=== PATIENT | female | born 1960 | race Caucasian/White ===

== ENCOUNTER 2018-11-16 05:11 | Inpatient (IN) | payer MEDICARE, MEDICAID ==
[2018-11-16] VITALS (24 sets, daily range): BP systolic 101–137; BP diastolic 48–81
[~2018-11-16] VITALS: Ht 165.1 cm; Wt 75.6 kg
[2018-11-16] MEDS ORDERED: CYCL-1 PO (05:37)
[2018-11-16] MEDS ORDERED: AMLO10TA13 PO (05:37)
[2018-11-16] MEDS ORDERED: MAGN400T28 PO (05:37)
[2018-11-16] MEDS ORDERED: OMEP-50 PO (05:37)
[2018-11-16] MEDS ORDERED: HYDR-3717 PO (05:37)
[2018-11-16] MEDS ORDERED: BACL10TA2 PO (05:37)
[2018-11-16] MEDS ORDERED: LISI10TA4 PO (05:37)
--- NOTE | 2018-11-16 05:39 | NUR ---
pt is somulent but will arouse with light stimulation or loud calling of her name. once awake she is appropriate but slightly slow to respond.
--- NOTE | 2018-11-16 05:42 | NUR ---
pt not able to recall medications she takes at home. MD has transfer packet at this time. external med rec recalled and medications that are still current were entered.
--- NOTE | 2018-11-16 05:46 | NUR ---
Dr. Falcon to bedside to evaluate the patient.
[2018-11-16 05:48] LABS: BASOPHILS # (AUTO) 0.1 X10'3 (0-0.2); MEAN CORPUSCULAR VOLUME 90.3 FL (78-98); MONOCYTES # (AUTO) 0.5 X10'3 (0-0.9)
[2018-11-16 05:49] LABS: BASOPHILS % (AUTO) 0.7 % (0-1); EOSINOPHILS # (AUTO) 0.2 X10'3 (0-0.9); EOSINOPHILS % (AUTO) 2.3 % (0-6); HEMATOCRIT 23.7 % (35.0-45.0); HEMOGLOBIN 8.3 g/dl (12.0-16.0); LYMPHOCYTES # (AUTO) 4.5 X10'3 (1.1-4.8); LYMPHOCYTES % (AUTO) 56.5 % (21-51); MEAN CORPUSCULAR HEMOGLOBIN 31.7 PG (27.0-31.0); MEAN CORPUSCULAR HGB CONC 35.1 g/dL (33.0-36.5); MEAN PLATELET VOLUME 9.8 FL (7.4-10.4); MONOCYTES % (AUTO) 5.7 % (2-12); NEUTROPHILS # (AUTO) 2.8 X10'3 (1.8-7.7); NEUTROPHILS % (AUTO) 34.8 % (42-75); RED BLOOD COUNT 2.63 X10'6 (4.20-5.60); RED CELL DISTRIBUTION WIDTH 14.1 % (11.5-14.5)
[2018-11-16 05:52] LABS: CLARITY,URINE CLOUDY (Clear); COLOR,URINE AMBER (Yellow); GLUCOSE, URINE NEGATIVE (Neg); KETONES,URINE TRACE mg/dl (Neg); LEUKOCYTE ESTERASE ,URINE SMALL (Neg); NITRITES, URINE NEGATIVE (Neg); OCCULT BLOOD,URINE LARGE (Neg); PH,URINE 5.5 (4.8-8.0); PROTEIN,URINE 100 mg/dl (Neg)
[2018-11-16 05:56] LABS: UA COLLECTION TYPE NON-SPECIFIED
[2018-11-16 06:00] LABS: BACTERIA,URINE 4+ /HPF (Neg); MUCUS STRANDS FEW /LPF (Neg); SQUAMOUS EPITHELIAL CELL,UR FEW /LPF (FEW); WBC,URINE 20-30 /HPF (0-4)
[2018-11-16 06:01] LABS: PARTIAL THROMBOPLASTIN TIME 37 SECONDS (22-32)
[2018-11-16 06:02] LABS: TRANSITIONAL EPI CELLS,URINE FEW /HPF
[2018-11-16 06:02] LABS: ALANINE AMINOTRANSFERASE 114 U/L (12-78); ALBUMIN 2.5 G/DL (3.4-5.0); ALBUMIN/GLOBULIN RATIO 0.8 (1.1-1.5); ALKALINE PHOSPHATASE 232 IU/L (46-116); ANION GAP 17 (8-16); ASPARTATE AMINO TRANSFERASE 260 U/L (10-37); BILIRUBIN,TOTAL 5.8 MG/DL (0.1-1.0); BLOOD UREA NITROGEN 28 MG/DL (7-18); BUN/CREATININE RATIO 22.8 (6.6-38.0); CALCIUM 8.4 MG/DL (8.5-10.1); CHLORIDE 92 MMOL/L (99-107); CREATININE 1.23 MG/DL (0.40-0.90); GLUCOSE 96 MG/DL (70-104); LIPASE 658 U/L (73-393); POTASSIUM 4.2 MMOL/L (3.5-5.1); SODIUM 128 MMOL/L (135-145); TOTAL CARBON DIOXIDE 19.4 MMOL/L (24-32); TOTAL PROTEIN 5.7 G/DL (6.4-8.2); eGFR 45 ML/MIN
[2018-11-16 06:03] LABS: AMORPHOUS URATES 2+
[2018-11-16 06:04] LABS: PLATELET COUNT 5 X10'3 (140-440)
--- NOTE | 2018-11-16 06:22 | NUR ---
RECEIVED REPORT FROM ROBBIN CASTANON, US AT BEDSIDE PER ORDERS, APRIL THE DESK OPERATOR AT BEDSIDE TO [place] FOR ADMISSION.
[2018-11-16 06:25] LABS: LACTIC SEPSIS 4.1 MMOL/L (0.4-2.0)
--- NOTE | 2018-11-16 06:32 | NUR ---
APRIL DISCUSSED PT WITH DR SINGH, INFORMED BOTH PROVIDER LACTIC 4.1, PROVIDERS DISCUSSED PLACING CENTRAL LINE, PER SAMANTHA WILL WAIT UNTIL 2 UNITS OF PLATELETS ADMINISTERED.
[2018-11-16] MEDS ORDERED: ipratropium/albuterol 3ml nebule NEB PRN (07:05)
[2018-11-16] MEDS ORDERED: dextrose 50%-water 50ml dispensing syringe IV PRN ×2 (07:05)
[2018-11-16] MEDS ORDERED: dextrose ORAL solution 15 GM/59 ML bottle PO PRN ×2 (07:05)
[2018-11-16] MEDS ORDERED: glucagon, human recombinant 1mg kit SUBCUT PRN (07:05)
[2018-11-16] MEDS ORDERED: acetaminophen 325mg tablet PO PRN (07:05)
[2018-11-16] MEDS ORDERED: ondansetron/PF 4mg/2ml inj IV PRN (07:05)
--- NOTE | 2018-11-16 07:21 | NUR ---
RECEIVED CALL FROM APRIL VERBAL ODER NS 75ML/HOUR AFTER BOTH PLATELETS ADMINISTERED AND HEAD CT ORDERED.
--- NOTE | 2018-11-16 07:46 | NUR ---
PT TO CT VIA JOSE WITH P[employer] AND [employer]EL MAN AND RN ON FULL MONITOR, PT STABLE FOR TRANSPORT
[2018-11-16] MEDS ORDERED: ESOMEPRAZOLE 40 MG VIAL IV SCH (08:00)
[2018-11-16] MEDS ORDERED: pantoprazole 40 MG vial IV SCH (08:00)
--- NOTE | 2018-11-16 08:00 | NUR ---
Patient in room ICU 2043. I have received report from Rachel CASTANON and had the opportunity to ask questions and assume patient care. Patient transported to our unit via gurney accompanied by RN, YULIANA running at 75ml/hr. Vital signs stable, no signs or symptoms of distress. Patient transferred from journey to bed and tolerated well. Two skin RN check completed with Silvio CASTANON, patient noted to have several bruises on the bilateral arms and to the right hip. Patient is sleepy but wakes and answers questions appropriately.
--- NOTE | 2018-11-16 08:00 | NUR ---
PT BACK TO BED [address], PT COMPLETED SECOND UNIT OF PLATELETS.
[2018-11-16] MEDS: normal saline 1000ml 1,000 ML IV SCH ×3 (08:08→20:53)
[2018-11-16 08:38] LABS: ACETAMINOPHEN < 2.0 UG/ML (10-30)
[2018-11-16] MEDS: lisinopril 10 MG tablet PO SCH (09:13)
[2018-11-16 09:24] LABS: NUCLEATED RED BLOOD CELLS 4 /100WBC (0-0); PLATELET ESTIMATE DECREASED; TOTAL CELLS COUNTED 100
[2018-11-16 09:25] LABS: BURR CELLS 2+; POLYCHROMASIA FEW; SCHISTOCYTES FEW
[2018-11-16 09:27] LABS: SMUDGE CELLS 2+
[2018-11-16] MEDS: lactobacillus rhamnosus 10,000 MMU CELLS/CAPSULE PO SCH ×2 (09:46→20:52)
[2018-11-16] MEDS: lactulose 20gm/30ml cup PO SCH ×2 (09:46→14:23)
[2018-11-16] MEDS: docusate sod 100mg capsule PO SCH ×2 (09:47→20:00)
--- NOTE | 2018-11-16 11:40 | NUR ---
Initial: Pt admit w/ gallstone pancreatitis and transaminitis; hx etoh cirrhosis now sober per pt and prior IVDA meth and cocaine per MD. Receiving banana bag. Pt Ferritin pending for possible hemochromatosis per MD. Pt Lipase on admit 658 w/ gallstones noted per imaging. Advanced to heart healthy diet today pending PO hx. Pt receiving routine lactulose given liver hx and ammonia 125. LBM 11/13. AOx4 per RN. Will continue to monitor. Rec: 1. continue heart healthy diet per MD 2. monitor for ONS needs pending PO hx 3. wt per rx 4. MVI/thiamin/folic for etoh hx per MD Addendum: 11/16/18 at [address] Amended: Links added.
[2018-11-16 12:03] LABS: HEMOGLOBIN 7.5 g/dl (12.0-16.0); MEAN CORPUSCULAR HEMOGLOBIN 31.9 PG (27.0-31.0); MEAN CORPUSCULAR HGB CONC 35.6 g/dL (33.0-36.5); MEAN CORPUSCULAR VOLUME 89.5 FL (78-98); MEAN PLATELET VOLUME 7.8 FL (7.4-10.4); RED BLOOD COUNT 2.34 X10'6 (4.20-5.60); RED CELL DISTRIBUTION WIDTH 13.8 % (11.5-14.5); WHITE BLOOD COUNT 4.7 X10'3 (4.5-11.0)
[2018-11-16 12:11] LABS: HEMATOCRIT 20.9 % (35.0-45.0); PLATELET COUNT 38 X10'3 (140-440)
[2018-11-16] MEDS: sucralfate 1gm/10ml UD suspension PO SCH ×3 (12:25→21:00)
[2018-11-16 12:32] LABS: % IRON SATURATION 98 % (11-46); IRON 242 UG/DL (49-151); TOTAL IRON BINDING CAPACITY 248 UG/DL (259-388)
[2018-11-16 12:33] LABS: FERRITIN 8159 NG/ML (8-252)
--- NOTE | 2018-11-16 12:56 | NUR ---
Per Dr Bronson after reviewing ABD Ultrasound 11/16/18 negative for ascites Paracentesis cancelled. ICU nurse called and informed
--- NOTE | 2018-11-16 13:24 | NUR ---
Called DR. Carballo about angio not performing the paracentesis, per Dr. Bronson reviewing the abd u/s and not finding enough evidence of ascites to warrant a paracentesis. no new orders at this time
--- NOTE | 2018-11-16 14:12 | NUR ---
Bárbara Called to notify that pt had gram negative bacteria in 2 aerobic bottles after 14 hours of growth. Notified dr reyes via telephone of results. Orders received to change abx. see order hx.
[2018-11-16] MEDS: piperacillin/tazo 3.375gm/50ml 50 ML IV SCH ×2 (15:01→20:53)
--- NOTE | 2018-11-16 15:23 | NUR ---
Son Darlene Milaca called to check on his mother, I, Kristi CASTANON obtained consent and Silvio CASTANON witnessed consent given to release information to said son Darlene. He provided us with his phone number [phone] he resides in [facility]. I updated him on his mothers status and answered any questions that he had. Also gave him our direct number and to call at anytime with any questions.
[2018-11-16 16:24] LABS: OCCULT BLOOD STOOL POSITIVE (Neg)
[2018-11-16 17:18] LABS: HEMOGLOBIN 7.2 g/dl (12.0-16.0); MEAN CORPUSCULAR HEMOGLOBIN 32.1 PG (27.0-31.0); MEAN PLATELET VOLUME 7.9 FL (7.4-10.4); RED CELL DISTRIBUTION WIDTH 14.5 % (11.5-14.5); WHITE BLOOD COUNT 4.2 X10'3 (4.5-11.0)
--- NOTE | 2018-11-16 18:24 | NUR ---
assumed care received report from Kristi CASTANON no questions or concerns after report
--- NOTE | 2018-11-16 18:55 | NUR ---
LAB CALLED SPOKE WITH [facility] LAB VALUES HAVE CHANGED DUE TO PATIENTS CONDITION MCHC IS AT 35.1,RBC 2.29,PLT 28,HGB SAME,MCT 20.5, LAB STATED IT WILL BE IN THEIR NOTES
[2018-11-16 18:56] LABS: RED BLOOD COUNT 2.29 X10'6 (4.20-5.60)
[2018-11-16 18:57] LABS: HEMATOCRIT 20.5 % (35.0-45.0)
[2018-11-16 18:58] LABS: MEAN CORPUSCULAR HGB CONC 35.1 g/dL (33.0-36.5)
[2018-11-16 18:59] LABS: PLATELET COUNT 28 X10'3 (140-440)
--- NOTE | 2018-11-16 19:00 | NUR ---
PATIENT IN BED EYES CLOSED RR EVEN UN LABORED NO S/S OF ACUTE STRESS AT THIS TIME
--- NOTE | 2018-11-16 19:00 | NUR ---
IN REPORT rn STATES THAT PATIENT HAS HAD MULTIPLE BM'S, SPOKE WITH APRIL DIRECTOR MEDICAL SAFETY TO POSSIBLY GET A RECTAL BAG NOT TUBE DUE TO PLT COUNT, APRIL STATED HOLD NEXT DOSE OF LACTULOSE AND RE-ASSESS BM'S AND IF MULTIPLE BM'S ORDER RECTAL BAG WOULD BE APPROPRIATE
[2018-11-16 19:03] LABS: HIV ANTIBODY 1&2 RAPID NON-REACTIVE (Neg)
[2018-11-16] MEDS: rifaximin 550mg tablet PO SCH (20:52)
--- NOTE | 2018-11-16 21:05 | NUR ---
APRIL NO VERBALIZED TO HOLD NEXT TWO DOSES OF LACTULOSE DUE TO PATIENT HAVING CONTINUOS DIARRHEA
[2018-11-17] VITALS (29 sets, daily range): BP systolic 107–137; BP diastolic 60–84
[2018-11-17] MEDS ORDERED: CefTRIAXone 2gm/D5W 50ml 50 ML IV SCH
--- NOTE | 2018-11-17 00:10 | NUR ---
PLACED RECTAL BAG VERBAL ORDER FROM APRIL COMPRESS ENGINEER PRN FOR MULTIPLE UNCONTROLLABLE BOWEL MOVEMENTS
--- NOTE | 2018-11-17 00:12 | NUR ---
PATIENT IN BED EYES CLOSED RR EVEN UN LABORED NO OBSERVABLE S/S OF ACUTE STRESS AT THIS TIME
[2018-11-17] MEDS: octreotide inj. 1,250 MCG in normal saline 250ml IV soln 243.75 ML IV SCH (01:19)
[2018-11-17] MEDS: lactulose 20gm/30ml cup PO SCH ×3 (01:19→20:23)
[2018-11-17] MEDS: normal saline 1000ml 1,000 ML IV SCH ×2 (01:20→16:24)
[2018-11-17 02:25] LABS: HEMATOCRIT 25.4 % (35.0-45.0); HEMOGLOBIN 9.1 g/dl (12.0-16.0); MEAN CORPUSCULAR HEMOGLOBIN 31.8 PG (27.0-31.0); MEAN CORPUSCULAR HGB CONC 35.9 g/dL (33.0-36.5); MEAN CORPUSCULAR VOLUME 88.7 FL (78-98); MEAN PLATELET VOLUME 7.4 FL (7.4-10.4); RED BLOOD COUNT 2.87 X10'6 (4.20-5.60); RED CELL DISTRIBUTION WIDTH 14.4 % (11.5-14.5); WHITE BLOOD COUNT 6.7 X10'3 (4.5-11.0)
--- NOTE | 2018-11-17 02:30 | NUR ---
patient in bed covers on eyes closed rr even un labored no observable s/s of acute stress or bleeding
[2018-11-17 02:31] LABS: PLATELET COUNT 17 X10'3 (140-440)
[2018-11-17] MEDS: piperacillin/tazo 3.375gm/50ml 50 ML IV SCH ×3 (03:17→14:12)
--- NOTE | 2018-11-17 04:30 | NUR ---
patient in bed eyes closed rr even un labored no observable s/s of acute stress at this time
--- NOTE | 2018-11-17 05:37 | NUR ---
patient in bed eyes closed rr even unlabored no observable s/s of acute stress or bleeding at this time
[2018-11-17 05:49] LABS: ALANINE AMINOTRANSFERASE 173 U/L (12-78); ALBUMIN 2.5 G/DL (3.4-5.0); ALKALINE PHOSPHATASE 202 IU/L (46-116); ANION GAP 10 (8-16); ASPARTATE AMINO TRANSFERASE 304 U/L (10-37); BILIRUBIN,TOTAL 9.4 MG/DL (0.1-1.0); BLOOD UREA NITROGEN 23 MG/DL (7-18); BUN/CREATININE RATIO 26.7 (6.6-38.0); CALCIUM 8.5 MG/DL (8.5-10.1); CHLORIDE 97 MMOL/L (99-107); CREATININE 0.86 MG/DL (0.40-0.90); GLUCOSE 146 MG/DL (70-104); MAGNESIUM 2.2 MG/DL (1.5-2.4); SODIUM 132 MMOL/L (135-145); TOTAL CARBON DIOXIDE 24.6 MMOL/L (24-32); eGFR 68 ML/MIN
[2018-11-17 05:51] LABS: ALBUMIN/GLOBULIN RATIO 0.8 (1.1-1.5); PHOSPHORUS 2.6 MG/DL (2.3-4.5); POTASSIUM 3.6 MMOL/L (3.5-5.1); TOTAL PROTEIN 5.7 G/DL (6.4-8.2)
[2018-11-17 05:59] LABS: PARTIAL THROMBOPLASTIN TIME 40 SECONDS (22-32)
[2018-11-17 06:05] LABS: BASOPHILS % (AUTO) 0.4 % (0-1); EOSINOPHILS # (AUTO) 0.1 X10'3 (0-0.9); EOSINOPHILS % (AUTO) 2.2 % (0-6); HEMATOCRIT 23.8 % (35.0-45.0); HEMOGLOBIN 8.6 g/dl (12.0-16.0); LYMPHOCYTES # (AUTO) 2.6 X10'3 (1.1-4.8); MEAN CORPUSCULAR HEMOGLOBIN 32.1 PG (27.0-31.0); MEAN CORPUSCULAR VOLUME 89.2 FL (78-98); MEAN PLATELET VOLUME 7.7 FL (7.4-10.4); MONOCYTES # (AUTO) 0.3 X10'3 (0-0.9); MONOCYTES % (AUTO) 5.2 % (2-12); NEUTROPHILS # (AUTO) 3.4 X10'3 (1.8-7.7); NEUTROPHILS % (AUTO) 52.2 % (42-75); RED BLOOD COUNT 2.67 X10'6 (4.20-5.60); RED CELL DISTRIBUTION WIDTH 14.7 % (11.5-14.5); WHITE BLOOD COUNT 6.5 X10'3 (4.5-11.0)
--- NOTE | 2018-11-17 06:27 | NUR ---
SBAR TO OSORIO CASTANON NO QUESTIONS OR CONCERNS AFTER REPORT
[2018-11-17 06:49] LABS: PLATELET COUNT 27 X10'3 (140-440)
[2018-11-17 06:52] LABS: NUCLEATED RED BLOOD CELLS 13 /100WBC (0-0); TOTAL CELLS COUNTED 100
[2018-11-17 06:54] LABS: PLATELET ESTIMATE DECREASED
[2018-11-17 06:56] LABS: HYPOCHROMASIA 1+; POLYCHROMASIA FEW; SCHISTOCYTES FEW
[2018-11-17 06:57] LABS: TOXIC GRANULATION 2+
[2018-11-17] MEDS: sucralfate 1gm/10ml UD suspension PO SCH ×4 (07:00→21:40)
[2018-11-17] MEDS: docusate sod 100mg capsule PO SCH ×2 (07:53→20:00)
[2018-11-17] MEDS: nicotine 14mg patch - 24hr TD SCH (08:00)
[2018-11-17] MEDS: lactobacillus rhamnosus 10,000 MMU CELLS/CAPSULE PO SCH ×2 (08:09→20:23)
[2018-11-17] MEDS: amLODIPine 5mg tablet PO SCH (08:10)
[2018-11-17] MEDS: lisinopril 10 MG tablet PO SCH (08:10)
[2018-11-17] MEDS: folic acid inj. 2 MG, thiamine inj. 100 MG in normal saline 100ml IV soln 100 ML IV SCH (08:11)
[2018-11-17] MEDS: MVI, adult No.4 with vit. K 10 ML in dextrose 5% water 500ml 500 ML IV SCH ×2 (09:33)
[2018-11-17] MEDS: rifaximin 550mg tablet PO SCH ×2 (12:21→20:24)
[2018-11-17] MEDS ORDERED: piperacillin/tazo 3.375gm/50ml 50 ML IV SCH (16:00)
--- NOTE | 2018-11-17 17:07 | NUR ---
Cabello discontinued per MD order according to policy and procedure. Patient tolerated well
--- NOTE | 2018-11-17 18:30 | NUR ---
Patient in room ICU 2043. I have received report from LG Cardenas and had the opportunity to ask questions and assume patient care. Patient is awake and alert, finishing dinner at time of report.
[2018-11-17 19:26] LABS: HEMATOCRIT 24.2 % (35.0-45.0); HEMOGLOBIN 8.5 g/dl (12.0-16.0); MEAN CORPUSCULAR HEMOGLOBIN 31.8 PG (27.0-31.0); MEAN CORPUSCULAR HGB CONC 35.2 g/dL (33.0-36.5); MEAN CORPUSCULAR VOLUME 90.2 FL (78-98); MEAN PLATELET VOLUME 7.8 FL (7.4-10.4); RED BLOOD COUNT 2.69 X10'6 (4.20-5.60); RED CELL DISTRIBUTION WIDTH 14.7 % (11.5-14.5); WHITE BLOOD COUNT 7.6 X10'3 (4.5-11.0)
[2018-11-17 19:33] LABS: PLATELET COUNT 14 X10'3 (140-440)
--- NOTE | 2018-11-17 19:50 | NUR ---
Critical Platelet count of 14. Call to Britney Greene NP. Order for 2 units Platelets transfuse now. re draw with AM labs. Patient requests "sleeping pill" states " I have not slept in a long time". Order for Restoril 15mg repeat x1 in not effective q HS PRN.
[2018-11-17] MEDS ORDERED: temazepam 15mg capsule PO PRN (20:15)
--- NOTE | 2018-11-17 23:06 | NUR ---
Phone call to Britney Greene NP patient met hyperglycemic protocol. With blood glucose of 224. Okay to start on Hyperglycemic protocol to treat with Humalog only. No lantus at this time. Order for Hemeglobin A1C with AM labs.
[2018-11-17] MEDS ORDERED: MESSAGE TO PHARMACY PO ONE (23:10)
[2018-11-18] VITALS (27 sets, daily range): BP systolic 118–153; BP diastolic 43–97
[2018-11-18] MEDS: piperacillin/tazo 3.375gm/50ml 50 ML IV SCH ×3 (00:15→16:14)
[2018-11-18] MEDS: insulin Lispro (HumaLOG) vial - multi-dose SQ SCH ×4 (02:49→19:33)
--- NOTE | 2018-11-18 02:55 | NUR ---
Attempted Admission Questions, patient states that "I just want to sleep. Can we do this later?" Will try again at a later time. Addendum: 11/18/18 at 0444 by Zina Smart RN Attempted to ask questions again, same response by patient given.
[2018-11-18 02:58] LABS: BASOPHILS # (AUTO) 0.1 X10'3 (0-0.2); BASOPHILS % (AUTO) 0.7 % (0-1); EOSINOPHILS # (AUTO) 0.1 X10'3 (0-0.9); EOSINOPHILS % (AUTO) 1.3 % (0-6); HEMATOCRIT 22.4 % (35.0-45.0); HEMOGLOBIN 7.9 g/dl (12.0-16.0); LYMPHOCYTES # (AUTO) 3.4 X10'3 (1.1-4.8); MEAN CORPUSCULAR HGB CONC 35.5 g/dL (33.0-36.5); MEAN CORPUSCULAR VOLUME 90.1 FL (78-98); MEAN PLATELET VOLUME 7.8 FL (7.4-10.4); MONOCYTES # (AUTO) 0.6 X10'3 (0-0.9); MONOCYTES % (AUTO) 6.5 % (2-12); NEUTROPHILS % (AUTO) 54.5 % (42-75); RED BLOOD COUNT 2.49 X10'6 (4.20-5.60); RED CELL DISTRIBUTION WIDTH 14.7 % (11.5-14.5); WHITE BLOOD COUNT 9.2 X10'3 (4.5-11.0)
[2018-11-18 03:11] LABS: ALANINE AMINOTRANSFERASE 144 U/L (12-78); ALBUMIN 2.4 G/DL (3.4-5.0); ALKALINE PHOSPHATASE 183 IU/L (46-116); ANION GAP 8 (8-16); ASPARTATE AMINO TRANSFERASE 199 U/L (10-37); BILIRUBIN,TOTAL 8.9 MG/DL (0.1-1.0); BLOOD UREA NITROGEN 22 MG/DL (7-18); BUN/CREATININE RATIO 26.8 (6.6-38.0); CALCIUM 8.8 MG/DL (8.5-10.1); CHLORIDE 99 MMOL/L (99-107); CREATININE 0.82 MG/DL (0.40-0.90); GLUCOSE 164 MG/DL (70-104); MAGNESIUM 2.3 MG/DL (1.5-2.4); PLATELET COUNT 36 X10'3 (140-440); SODIUM 133 MMOL/L (135-145); TOTAL CARBON DIOXIDE 26.2 MMOL/L (24-32); eGFR 71 ML/MIN
[2018-11-18 03:13] LABS: PARTIAL THROMBOPLASTIN TIME 35 SECONDS (22-32)
[2018-11-18 03:15] LABS: ALBUMIN/GLOBULIN RATIO 0.7 (1.1-1.5); PHOSPHORUS 1.8 MG/DL (2.3-4.5); TOTAL PROTEIN 5.8 G/DL (6.4-8.2)
[2018-11-18 03:51] LABS: HEMOGLOBIN A1C 6.1 % (4.5-6.2)
--- NOTE | 2018-11-18 04:17 | NUR ---
K 3.0. phone call to Britney Greene NP. Order to replace x1 with 40 mEq of K- Dur PO. Does not want the protocol replacement at this time.
[2018-11-18] MEDS ORDERED: potassium Cl 20 mEq SR tablet PO STA (04:18)
--- NOTE | 2018-11-18 05:28 | NUR ---
Patient appears to be sleeping throughout the night. Patient awakens easily throughout the night. Patient c/o " I can't sleep". Patient requesting to have her Atarax and baclofen, which she takes at home. These medications are on hold by the MD. The atarax and Baclofen were addressed in previous phone call to Britney Greene NP. Encouraged patient to discuss this issue with the MD during the day. Patient is c/o back pain. warm blankets provided with assistance with repositioning. Improved comfort reported by patient.
--- NOTE | 2018-11-18 06:27 | NUR ---
Problems reprioritized. Patient report given, questions answered & plan of care reviewed with LG Borjas.
[2018-11-18] MEDS ORDERED: bisacodyl 10mg suppository rectal RC PRN (07:05)
[2018-11-18] MEDS: sucralfate 1gm/10ml UD suspension PO SCH ×4 (07:34→21:28)
[2018-11-18] MEDS: docusate sod 100mg capsule PO SCH ×2 (08:00→20:00)
[2018-11-18] MEDS: nicotine 14mg patch - 24hr TD SCH (08:00)
[2018-11-18] MEDS: MVI, adult No.4 with vit. K 10 ML in dextrose 5% water 500ml 500 ML IV SCH ×2 (08:43)
[2018-11-18] MEDS: amLODIPine 5mg tablet PO SCH (08:44)
[2018-11-18] MEDS: lactulose 20gm/30ml cup PO SCH ×2 (08:44→20:00)
[2018-11-18] MEDS: folic acid inj. 2 MG, thiamine inj. 100 MG in normal saline 100ml IV soln 100 ML IV SCH (08:44)
[2018-11-18] MEDS: lactobacillus rhamnosus 10,000 MMU CELLS/CAPSULE PO SCH ×2 (08:45→20:12)
[2018-11-18] MEDS: lisinopril 10 MG tablet PO SCH (08:45)
[2018-11-18] MEDS: rifaximin 550mg tablet PO SCH ×2 (08:45→20:12)
--- NOTE | 2018-11-18 11:02 | NUR ---
Called [facility] to inquire about culture and sensitivity of positive blood cultures. Reception Interviewer stated would fax over.
[2018-11-18] MEDS: normal saline 1000ml 1,000 ML IV SCH (12:34)
[2018-11-18] MEDS: baclofen 10mg tablet PO PRN ×2 (12:37→17:15)
--- NOTE | 2018-11-18 17:40 | NUR ---
Flight Crew called after having landed in [facility] [place], Flight Crew states weather in [place] will be too poor to land if crew would pick pt up, so have decided to fly back and try again to picker and sorter load and unload pt at [facility] weather permitting.
[2018-11-18] MEDS: octreotide inj. 1,250 MCG in normal saline 250ml IV soln 243.75 ML IV SCH (21:28)
--- NOTE | 2018-11-18 22:39 | NUR ---
Received report from prior RN. Pt resting in bed, rise and fall of chest cavity equile and symmetrical, [facility] called, stated they will be here in 2 hours to strip picker pt, nursing mold cleaning and storage supervisor aware
[2018-11-19] VITALS (17 sets, daily range): BP systolic 128–165; BP diastolic 79–100
[2018-11-19] MEDS: piperacillin/tazo 3.375gm/50ml 50 ML IV SCH ×2 (01:20→10:25)
--- NOTE | 2018-11-19 01:49 | NUR ---
[facility] called, stated they were aborting all attempts for the remainder of the night due to [place] fog, will reattempt in the am to transport pt.
[2018-11-19 03:33] LABS: BASOPHILS # (AUTO) 0.1 X10'3 (0-0.2); BASOPHILS % (AUTO) 0.7 % (0-1); EOSINOPHILS # (AUTO) 0.2 X10'3 (0-0.9); EOSINOPHILS % (AUTO) 1.4 % (0-6); HEMATOCRIT 26.8 % (35.0-45.0); HEMOGLOBIN 9.4 g/dl (12.0-16.0); LYMPHOCYTES % (AUTO) 32.1 % (21-51); MEAN CORPUSCULAR HGB CONC 35.1 g/dL (33.0-36.5); MEAN CORPUSCULAR VOLUME 88.3 FL (78-98); MEAN PLATELET VOLUME 7.9 FL (7.4-10.4); MONOCYTES # (AUTO) 0.9 X10'3 (0-0.9); MONOCYTES % (AUTO) 7.3 % (2-12); NEUTROPHILS # (AUTO) 7.3 X10'3 (1.8-7.7); NEUTROPHILS % (AUTO) 58.5 % (42-75); RED BLOOD COUNT 3.04 X10'6 (4.20-5.60); RED CELL DISTRIBUTION WIDTH 16.3 % (11.5-14.5); WHITE BLOOD COUNT 12.5 X10'3 (4.5-11.0)
[2018-11-19 03:41] LABS: PLATELET COUNT 15 X10'3 (140-440)
[2018-11-19 03:42] LABS: ALANINE AMINOTRANSFERASE 130 U/L (12-78); ALBUMIN 2.3 G/DL (3.4-5.0); ALKALINE PHOSPHATASE 237 IU/L (46-116); BILIRUBIN,TOTAL 15.1 MG/DL (0.1-1.0); BLOOD UREA NITROGEN 22 MG/DL (7-18); BUN/CREATININE RATIO 31.9 (6.6-38.0); CALCIUM 9.1 MG/DL (8.5-10.1); CHLORIDE 100 MMOL/L (99-107); CREATININE 0.69 MG/DL (0.40-0.90); MAGNESIUM 2.1 MG/DL (1.5-2.4); eGFR 87 ML/MIN
[2018-11-19 04:09] LABS: PHOSPHORUS 1.8 MG/DL (2.3-4.5)
[2018-11-19 04:26] LABS: PARTIAL THROMBOPLASTIN TIME 32 SECONDS (22-32)
[2018-11-19 04:33] LABS: ASPARTATE AMINO TRANSFERASE 214 U/L (10-37)
[2018-11-19 04:35] LABS: ALBUMIN/GLOBULIN RATIO 0.7 (1.1-1.5); ANION GAP 8 (8-16); GLUCOSE 118 MG/DL (70-104); POTASSIUM 3.3 MMOL/L (3.5-5.1); SODIUM 135 MMOL/L (135-145); TOTAL PROTEIN 5.7 G/DL (6.4-8.2)
[2018-11-19 04:39] LABS: ANISOCYTOSIS 1+; NUCLEATED RED BLOOD CELLS 6 /100WBC (0-0); PLATELET ESTIMATE DECREASED; POLYCHROMASIA FEW; TOTAL CELLS COUNTED 100; TOXIC GRANULATION 1+
--- NOTE | 2018-11-19 06:26 | NUR ---
Problems reprioritized. Patient report given, questions answered & plan of care reviewed with Cyndy CASTANON and Silvio CASTANON.
[2018-11-19] MEDS: sucralfate 1gm/10ml UD suspension PO SCH (06:36)
[2018-11-19] MEDS: lactobacillus rhamnosus 10,000 MMU CELLS/CAPSULE PO SCH (07:05)
[2018-11-19] MEDS: rifaximin 550mg tablet PO SCH (07:06)
[2018-11-19] MEDS: lisinopril 10 MG tablet PO SCH (07:06)
[2018-11-19] MEDS: amLODIPine 5mg tablet PO SCH (07:07)
[2018-11-19] MEDS: lactulose 20gm/30ml cup PO SCH (07:07)
[2018-11-19] MEDS: baclofen 10mg tablet PO PRN (07:10)
[2018-11-19] MEDS: docusate sod 100mg capsule PO SCH (07:13)
[2018-11-19] MEDS: nicotine 14mg patch - 24hr TD SCH (07:14)
[2018-11-19] MEDS ORDERED: folic acid 1mg tablet PO SCH (08:00)
[2018-11-19] MEDS ORDERED: thiamine 100mg tablet PO SCH (08:00)
[2018-11-19] MEDS ORDERED: multivitamins, therapeutics tablet PO SCH (08:00)
[2018-11-19] MEDS: insulin Lispro (HumaLOG) vial - multi-dose SQ SCH (09:41)
[2018-11-19] MEDS: normal saline 1000ml 1,000 ML IV SCH (10:26)
--- NOTE | 2018-11-19 12:45 | NUR ---
Air crew and EMS here to transfer pt to [facility].
== END 2018-11-19 12:50 | disposition short-term general hospital (02) | DRG 871 ==
LOC: ER 05:13 → ICU 2S 08:18 → CMPBEDREQ 19:51
PROVIDERS: ADMIT Nurse Practitioner Family; ATTEND Internal Medicine Critical Care Medicine
PROC: 30233R1 Transfusion of Nonautologous Platelets into Peripheral Vein, Percutaneous Approach (ICD-10-PCS; principal; 2018-11-16)
PROC: 30233N1 Transfusion of Nonautologous Red Blood Cells into Peripheral Vein, Percutaneous Approach (ICD-10-PCS; 2018-11-16)
PROC: 02HV33Z Insertion of Infusion Device into Superior Vena Cava, Percutaneous Approach (ICD-10-PCS; 2018-11-16)
PROC: B548ZZA Ultrasonography of Superior Vena Cava, Guidance (ICD-10-PCS; 2018-11-16)
PROC: 30233R1 Transfusion of Nonautologous Platelets into Peripheral Vein, Percutaneous Approach (ICD-10-PCS; 2018-11-17)
PROC: 30233N1 Transfusion of Nonautologous Red Blood Cells into Peripheral Vein, Percutaneous Approach (ICD-10-PCS; 2018-11-18)
PROC: 30233R1 Transfusion of Nonautologous Platelets into Peripheral Vein, Percutaneous Approach (ICD-10-PCS; 2018-11-19)
DX: A41.51 Sepsis due to Escherichia coli [E. coli] (principal); K85.10 Biliary acute pancreatitis without necrosis or infection; N39.0 Urinary tract infection, site not specified; E87.1 Hypo-osmolality and hyponatremia; D61.818 Other pancytopenia; G89.29 Other chronic pain; K72.90 Hepatic failure, unspecified without coma; F17.210 Nicotine dependence, cigarettes, uncomplicated; B19.20 Unspecified viral hepatitis C without hepatic coma; D63.8 Anemia in other chronic diseases classified elsewhere; D69.59 Other secondary thrombocytopenia; I10 Essential (primary) hypertension; J44.9 Chronic obstructive pulmonary disease, unspecified; K21.9 Gastro-esophageal reflux disease without esophagitis; K59.00 Constipation, unspecified; K70.30 Alcoholic cirrhosis of liver without ascites; Z85.3 Personal history of malignant neoplasm of breast; Z90.12 Acquired absence of left breast and nipple; Z88.5 Allergy status to narcotic agent; Z88.8 Allergy status to other drugs, medicaments and biological substances; Z79.899 Other long term (current) drug therapy
CPT/HCPCS: 36415; 36569; 70450; 76700; 76937; 80053; 80329; 81001; 81479; 82140; 82272; 82728; 82948; 83036; 83540; 83550; 83605; 83690; 83735; 83880; 83891; 83892; 83894; 83898; 84100; 84145; 85025; 85027; 85610; 85730; 86703; 86885; 86900; 86901; 86920; 87040; 87077; 87088; 87186; 93005; 93306; 94760; 97110; 97116; 97161; 97530; 99285; G0378; J1815; J2354; J2543; J3411; J3490; J7050; J7060; P9016; P9035